=== PATIENT | female | born 1980 | race Caucasian/White ===

== ENCOUNTER 2020-12-06 15:25 | Emergency (ER) | payer OTHER ==
[~2020-12-06] VITALS: Ht 162.6 cm; Wt 104.3 kg
[2020-12-06] MEDS ORDERED: NITROGLYCERIN 0.4 MG SUBL ONE (15:41)
[2020-12-06] MEDS ORDERED: NITROGLYCERIN 0.4 MG SUBL SL ONE (15:45)
== END 2020-12-06 16:26 | disposition home or self-care (01) ==
LOC: ER 15:28
DX: R09.89 Other specified symptoms and signs involving the circulatory and respiratory systems (principal); K22.2 Esophageal obstruction; T18.128A Food in esophagus causing other injury, initial encounter; G47.30 Sleep apnea, unspecified
CPT/HCPCS: 99283

== ENCOUNTER 2021-02-15 15:54 | Emergency (ER) | payer OTHER ==
[~2021-02-15] VITALS: Ht 162.6 cm; Wt 104.3 kg
[2021-02-15] MEDS ORDERED: DEXAMETHASONE SOD PHOS 10 MG/1 ML VIAL IM NR (16:30)
[2021-02-15] MEDS ORDERED: KETOROLAC TROMETHAMINE 60 MG/2 ML VIAL IM NR (16:30)
[2021-02-15] MEDS ORDERED: ORPHENADRINE CITRATE 30 MG/ML VIAL IM ONE (16:30)
[2021-02-15] MEDS ORDERED: MOTRIN200 MG PO (20:42)
[2021-02-15] MEDS ORDERED: CYCLOBENZAPRINE5 MG PO (20:42)
[2021-02-15] MEDS ORDERED: PREDNISONE20 MG PO (20:42)
[2021-02-15] MEDS ORDERED: KETOROLAC TROMETHAMINE 60 MG/2 ML VIAL ONE (20:54)
[2021-02-15] MEDS ORDERED: DEXAMETHASONE SOD PHOS 10 MG/1 ML VIAL ONE (20:54)
[2021-02-15] MEDS ORDERED: ORPHENADRINE CITRATE 30 MG/ML VIAL ONE (20:55)
== END 2021-02-15 21:27 | disposition home or self-care (01) ==
LOC: ER 19:01
DX: S16.1XXA Strain of muscle, fascia and tendon at neck level, initial encounter (principal); G47.30 Sleep apnea, unspecified
CPT/HCPCS: 72050; 99283; J1100; J1885; J2360